=== PATIENT | female | born 1935 | race Caucasian/White ===

== ENCOUNTER 2023-10-13 15:29 | Inpatient (IN) | payer MEDICARE ==
--- NOTE | 2023-10-13 15:51 | ED ---
General Adult HPI - General Chief complaint: Fall Stated complaint: dislocated hip Time Seen by Provider: 10/13/23 15:50 Source: patient, EMS Mode of arrival: EMS Limitations: no limitations - History of Present Illness Initial comments: Patient presents to the ED by ambulance for evaluation. Patient states that she accidentally slipped and fell while holding her small puppy in her arms about an hour ago today. Patient states that she landed on her left side. Patient states that she has been having left hip pain since falling. Patient denies any other injury or site of pain. Patient denies head injury, headache, LOC/syncope, focal neuro deficit, neck/back/upper extremity pain, chest pain, dyspnea, palpitations, dizziness, abdominal pain, nausea or vomiting, or any other symptoms or complaints. Patient states that she is on Eliquis antico agulation therapy for atrial fibrillation. - Related Data Allergies Allergy/AdvReac Type Severity Reaction Status Date / Time No Known Allergies Allergy Verified 10/13/23 15:49 Review of Systems ROS Statement: Those systems with pertinent positive or pertinent negative responses have been documented in the HPI. ROS Other: All systems not noted in ROS Statement are negative. Past Medical History Past Medical History: Atrial Fibrillation, Thyroid Disorder Past Surgical History: Section, Cholecystectomy, Hysterectomy, Orthopedic Surgery Additional Past Surgical History / Comment(s): carpal tunnel surgery Smoking Status: Former smoker Past Alcohol Use History: Occasional Past Drug Use History: None Reported General Exam Limitations: no limitations General appearance: alert Head exam: Present: atraumatic, normocephalic Eye exam: Present: normal appearance ENT exam: Present: mucous membranes moist Neck exam: Present: full ROM, other (Trachea is in midline). Absent: tenderness Respiratory exam: Present: normal lung sounds bilaterally. Absent: respiratory distress, wheezes, rales, rhonchi, stridor, chest wall tenderness Cardiovascular Exam: Present: normal rhythm, irregular rhythm, normal heart sounds, other (Normal radial and dorsalis pedis pulses bilaterally) GI/Abdominal exam: Present: soft. Absent: distended, tenderness, guarding Extremities exam: Present: other (Left lower extremity is shortened and externally rotated at rest; left lateral hip tenderness; pelvis is stable; left lower extremity is neurovascularly intact) Back exam: Present: normal inspection. Absent: tenderness Neurological exam: Present: alert, oriented X3. Absent: motor sensory deficit Psychiatric exam: Present: normal affect Skin exam: Present: warm, dry, intact, normal color Course Vital Signs 10/13/23 15:38 Temperature 98.0 F Pulse Rate 86 Respiratory 16 Rate Blood Pressure 129/87 O2 Sat by Pulse 96 Oximetry - Reevaluation(s) Reevaluation #1: 10/13/23 18:02 Case, H&P and test results/x-ray findings were discussed with Dr. Jean (orthopedic surgery). He accepts hospital admission. He asks to consult [facility] for preoperative clearance. He has no further recommendations at this time. 10/13/23 18:15 Case, H&P, test results/x-ray findings and my discussion with Dr. Jean as above were discussed with CONSTRUCTION FLAGGER Gonzalo Bryant with [facility]. She agrees to see the patient in consultation. 10/13/23 18:19 Patient denies development of any new pain or symptoms while in the ED. Patient is aware of her test results, and she agrees with hospital admission at this time. EKG Findings - EKG Comments: EKG Findings:: ED physician interpretation (interpreted by me): Atrial fibrillation, ventricular rate of 100 bpm, normal QRS duration, normal QT interval, normal axis, nonspecific T-wave abnormality, no ST elevation Medical Decision Making - Medical Decision Making Was pt. sent in by a medical professional or institution ([facility]AM[facility] Boswell, CONSTRUCTION FLAGGER, urgent care, hospital, or [facility]...) When possible be specific @ -[No] Did you speak to anyone other than the patient for history (EMS, parent, family, police, friend...)? What history was obtained from this source @ -[No] Did you review nursing and triage notes (agree or disagree)? Why? @ -[I reviewed and agree with nursing and triage notes] Were old charts reviewed (outside hosp., previous admission, EMS record, old EKG, old radiological studies, urgent care reports/EKG's, [facility] records)? Report findings @ -[No old charts were reviewed] Differential Diagnosis (chest pain, altered mental status, abdominal pain women, abdominal pain men, vaginal bleeding, weakness, fever, dyspnea, syncope, headache, dizziness, GI bleed, back pain, seizure, CVA, palpatations, mental health, musculoskeletal)? @ -[fall, fracture, sprain, strain, contusion, dislocation, coagulopathy] EKG interpreted by me (3pts min.). @ -[As above] X-rays interpreted by me (1pt min.). @ -[Chest x-ray was reviewed myself and shows no acute cardiopulmonary process. I agree with the radiologist's interpretation as above. Left hip x-rays were reviewed myself and demonstrate an intertrochanteric left hip fracture. I agree with the radiologist's interpretation as above.] CT interpreted by me (1pt min.). @ -[None done] U/S interpreted by me (1pt. min.). @ -[None done] What testing was considered but not performed or refused? (CT, X-rays, U/S, labs)? Why? @ -[None] What meds were considered but not given or refused? Why? @ -[None] Did you discuss the management of the patient with other professionals (professionals i.e. , PA, CONSTRUCTION FLAGGER, lab, RT, psych nurse, social insurance analyst, training development specialist, teacher, cavalry officer, case coordinator)? Give summary @ -[As above.] Was smoking cessation discussed for >3mins.? @ -[No] Was critical care preformed (if so, how long)? @ -[No] Were there social determinants of health that impacted care today? How? (Homelessness, low income, unemployed, alcoholism, drug addiction, transp ortation, low edu. Level, literacy, decrease access to med. care, long term, rehab)? @ -[No] Was there de-escalation of care discussed even if they declined (Discuss DNR or withdrawal of care, Hospice)? DNR status @ -[No] What co-morbidities impacted this encounter? (DM, HTN, Smoking, COPD, CAD, Cancer, CVA, ARF, Chemo, Hep., AIDS, mental health diagnosis, sleep apnea, morbid obesity)? @ -[None] Was patient admitted / discharged? Hospital course, mention meds given and route, prescriptions, significant lab abnormalities, going to OR and other pertinent info. @ -[Patient reports a mechanical fall. Patient has sustained a left intertrochanteric closed hip fracture. Patient's pain has been managed with IV analgesics in the ED. Orthopedic surgery will admit the patient to the hospital for surgical management. Hospitalist service will see the patient in consul tation for preoperative clearance. Patient agrees with this plan.] Undiagnosed new problem with uncertain prognosis? @ -[No] Drug Therapy requiring intensive monitoring for toxicity (Heparin, Nitro, Insulin, Cardizem)? @ -[No] Were any procedures done? @ -[No] Diagnosis/symptom? @ -[mechanical fall with acute left hip fracture] Acute, or Chronic, or Acute on Chronic? @ -[acute] Uncomplicated (without systemic symptoms) or Complicated (systemic symptoms)? @ -[default] Side effects of treatment? @ -[No] Exacerbation, Progression, or Severe Exacerbation? @ -[No] Poses a threat to life or bodily function? How? (Chest pain, [place], [place], pneumonia, PE, COPD, DKA, ARF, appy, cholecystitis, CVA, Diverticulitis, Homicidal, Suicidal, threat to staff... and all critical care pts) @ -[No] Diagnosis/symptom? @ -[atrial fibrillation] Acute, or Chronic, or Acute on Chronic? @ -[chronic] Uncomplicated (without systemic symptoms) or Complicated (systemic symptoms)? @ -[uncomplicated] Side effects of treatment? @ -[none] Exacerbation, Progression, or Severe Exacerbation] @ -[no] Poses a threat to life or bodily function? @ -[no] - Lab Data Result diagrams: 10/13/23 16:36 10/13/23 16:36 Lab Results 10/13/23 10/13/23 10/13/23 Range/Units 16:36 16:36 16:36 WBC 10.5 (3.8-10.6) k/uL RBC 4.02 (3.80-5.40) m/uL Hgb 12.2 (11.4-16.0) gm/dL Hct 37.3 (34.0-46.0) % MCV 92.6 (80.0-100.0) fL MCH 30.2 (25.0-35.0) pg MCHC 32.6 (31.0-37.0) g/dL RDW 15.9 H (11.5-15.5) % Plt Count 230 (150-450) k/uL MPV 8.9 Neutrophils % 87 % Lymphocytes % 8 % Monocytes % 3 % Eosinophils % 1 % Basophils % 0 % Neutrophils # 9.2 H (1.3-7.7) k/uL Lymphocytes # 0.8 L (1.0-4.8) k/uL Monocytes # 0.3 (0-1.0) k/uL Eosinophils # 0.1 (0-0.7) k/uL Basophils # 0.0 (0-0.2) k/uL PT 12.0 (10.0-12.5) sec INR 1.1 (<1.2) APTT 26.5 (22.0-30.0) sec Sodium 136 L (137-145) mmol/L Potassium 5.2 H (3.5-5.1) mmol/L Chloride 106 (98-107) mmol/L Carbon Dioxide 27 (22-30) mmol/L Anion Gap 3 mmol/L BUN 18 H (7-17) mg/dL Creatinine 0.58 (0.52-1.04) mg/dL Est GFR (CKD-EPI)AfAm >90 (>60 ml/min/1.73 sqM) Est GFR (CKD-EPI)NonAf 83 (>60 ml/min/1.73 sqM) Glucose 102 H (74-99) mg/dL Calcium 9.3 (8.4-10.2) mg/dL Total Bilirubin 1.1 (0.2-1.3) mg/dL AST 74 H (14-36) U/L ALT 40 H (4-34) U/L Alkaline Phosphatase 153 H (38-126) U/L Total Protein 7.1 (6.3-8.2) g/dL Albumin 4.0 (3.5-5.0) g/dL - Radiology Data Left hip x-rays: Intertrochanteric fracture left hip. Chest x-ray: No acute pulmonary process. Disposition Clinical Impression: Fall, Atrial fibrillation, Closed left hip fracture Disposition: ADMITTED IP TO THIS [facility] Condition: Stable Is patient prescribed a controlled substance at d/c from ED?: No Referrals: Chandrakant Oakley MD [Primary Care Provider] - 1-2 days Time of Disposition: 18:02
[2023-10-13] MEDS ORDERED: HYDROmorphone 0.5 MG/0.5 ML SYRINGE IVP STA (16:04)
[2023-10-13 17:01] LABS: Basophils % (A) 0 %; Eosinophils # (A) 0.1 k/uL (0-0.7); Eosinophils % (A) 1 %; HCT 37.3 % (34.0-46.0); HGB 12.2 gm/dL (11.4-16.0); Lymphocytes # (A) 0.8 k/uL (1.0-4.8); Lymphocytes % (A) 8 %; MCH 30.2 pg (25.0-35.0); MCHC 32.6 g/dL (31.0-37.0); MCV 92.6 fL (80.0-100.0); Mean Platelet Volume 8.9; Monocytes # (A) 0.3 k/uL (0-1.0); Monocytes % (A) 3 %; Neutrophils # (A) 9.2 k/uL (1.3-7.7); Neutrophils % (A) 87 %; Platelet Count 230 k/uL (150-450); RBC 4.02 m/uL (3.80-5.40); RDW 15.9 % (11.5-15.5); WBC 10.5 k/uL (3.8-10.6)
[2023-10-13 17:14] LABS: ALT 40 U/L (4-34); AST 74 U/L (14-36); African American GFR (CKD) >90 (>60 ml/min/1.73 sqM); Alkaline Phosphatase 153 U/L (38-126); Anion Gap 3 mmol/L; Blood Urea Nitrogen 18 mg/dL (7-17); Calcium 9.3 mg/dL (8.4-10.2); Carbon Dioxide 27 mmol/L (22-30); Chloride 106 mmol/L (98-107); Glucose 102 mg/dL (74-99); Non-African American GFR(CKD) 83 (>60 ml/min/1.73 sqM); Sodium 136 mmol/L (137-145); Total Bilirubin 1.1 mg/dL (0.2-1.3); Total Protein 7.1 g/dL (6.3-8.2)
[2023-10-13 17:17] LABS: INR 1.1 (<1.2); Partial Thromboplastin Time 26.5 sec (22.0-30.0)
--- NOTE | 2023-10-13 17:17 | XR ---
EXAMINATION TYPE: XR femur LT DATE OF EXAM: 10/13/2023 COMPARISON: None HISTORY: Fall, hip injury TECHNIQUE: 2 view left femur FINDINGS: There is an intertrochanteric fracture of the left hip. Avulsion of the lesser trochanter a ppears to be present. Femoral head or to go to the acetabulum. No additional fractures are evident. Degenerative changes ar e at the knee joint space. No joint effusion is evident. IMPRESSION: 1. Intertrochanteric fracture left hip
--- NOTE | 2023-10-13 17:18 | XR ---
EXAMINATION TYPE: XR chest 1V portable DATE OF EXAM: 10/13/2023 COMPARISON: None INDICATION: Left hip injury TECHNIQUE: Single frontal view of the chest is obtained. FINDINGS: The heart size is normal. The pulmonary vasculature is normal. The lungs are clear. Chronic changes right shoulder. IMPRESSION: 1. No acute pulmonary process.
[2023-10-13 17:24] LABS: Potassium 5.2 mmol/L (3.5-5.1)
[2023-10-13] MEDS ORDERED: NALOXONE 0.4 MG/ML 1 ML VIAL IV PRN (18:17)
[2023-10-13] MEDS: HYDROmorphone 0.5 MG/0.5 ML SYRINGE IVP PRN (22:38)
--- NOTE | 2023-10-13 23:25 | P.CONS ---
History of Present Illness - Reason for Consult Consult date: 10/13/23 - History of Present Illness Patient is a 88-year-old female with a PMH of A-fib on Eliquis, GERD, and hypothyroidism who presents to the emergency room after a fall. Patient reports she was sitting down on a couch watching television when she stood up and as she was walking, her foot slipped and she fell onto her left side. She vehemently denies losing consciousness or experiencing head trauma. The patient's son soon got back home from the grocery store and found her on the ground and activated EMS. Patient reported being unable to stand up after the trauma. She reported severe pain on her left hip at that time but has now improved to a 1 out of 10 at rest. She denies any additional complaints. Denied experiencing headaches, visual disturbances, weakness, numbness, tingling. Left hip x-ray revealed an intertrochanteric fracture of the left hip with chest x-ray showing no acute abnormalities. EKG revealed A-fib with RVR at 100 bpm with T wave flattening in leads II, III, and aVF. Laboratory evaluation was remarkable for AST 74, ALT 40, alk phos 153, potassium 5.2 (hemolyzed) and platelet count 230. ED documentation reviewed and case discussed with ED provider. Review of systems: Pertinent positives and negatives as discussed in HPI, a complete review of systems was performed and all other systems are negative. Physical examination: Vital signs reviewed General: non toxic, no distress, appears at stated age, overweight Derm: no unusual rashes/lesions, warm Head: atraumatic, normocephalic, symmetric Eyes: EOMI, no lid lag, anicteric sclera, pupils equal round reactive to light ENT: Nose and ears atraumatic Neck: No cervical lymphadenopathy, trachea midline, supple Mouth: no lip lesion, mucus membranes moist Cardiovascular: S1S2 reg, no murmur, positive dorsalis pedis pulse bilateral, no edema Lungs: CTA bilateral, no rhonchi, no rales, no accessory muscle use Abdominal: soft, nontender to palpation, no guarding Ext: muscle strength 5 out of 5 in all 4 extremities grossly except left lower extremity proximal strength limited due to pain, no gross muscle atrophy, no contractures, Neuro: CN II-XI grossly intact, no gross focal neuro deficits Psych: Alert, oriented, appropriate affect Assessment: Preoperative evaluation Patient reports excellent exercise tolerance at baseline and reports not using any assistive devices and being able to climb stairs without difficulty. She performs most of her ADLs independently and feels that she is not excellent health for her age. She denies experiencing exertional dyspnea or chest discomfort. Reports no history of coronary artery disease or congestive heart failure. States that her A-fib is well-controlled with Cardizem orally and that she is compliant with her Eliquis with her last dose this a.m. NSQIP score: 8.4% risk for any complication and 7.7% risk for serious complication (both below average) Will defer to surgery regarding preop hold duration and post-op resumption of Eliquis The patient is otherwise optimized for orthopedic surgical repair of left femo ral fracture with no obvious modifiable risk factors noted. Chronic conditions: Hypothyroidism, GERD, A-fib Imaging: Left hip x-ray revealed an intertrochanteric fracture of the left hip with chest x-ray showing no acute abnormalities. EKG revealed A-fib with RVR at 100 bpm with T wave flattening in leads II, III, and aVF. Data Review: Laboratory evaluation was remarkable for AST 74, ALT 40, alk phos 153, potassium 5.2 (hemolyzed) and platelet count 230. Plan: C/w Cardiac monitoring Continue with home medications Synthroid, Protonix, Cardizem Defer management of pain control and Eliquis resumption for A-fib and DVT prophylaxis to the primary surgery service Past Medical History Past Medical History: Atrial Fibrillation, Thyroid Disorder Additional Past Medical History / Comment(s): "uric acid problem that I take colchicine for" History of Any Multi-Drug Resistant Organisms: None Reported Past Surgical History: Section, Cholecystectomy, Heart Catheterization, Hysterectomy, Orthopedic Surgery Additional Past Surgical History / Comment(s): carpal tunnel surgery, torn meniscus in both knees, bladder suspension Past Anesthesia/Blood Transfusion Reactions: No Reported Reaction Past Psychological History: No Psychological Hx Reported Smoking Status: Former smoker Past Alcohol Use History: Rare Past Drug Use History: None Reported Medications and Allergies Home Medications Medication Instructions Recorded Confirmed Type Acetaminophen Tab [Tylenol] 650 mg PO Q4-6H PRN 10/13/23 10/13/23 History Apixaban [Eliquis] 2.5 mg PO BID 10/13/23 10/13/23 History Diltiazem Cd [Cardizem CD] 120 mg PO BID 10/13/23 10/13/23 History Levothyroxine Sodium [Synthroid] 100 mcg PO DAILY 10/13/23 10/13/23 History Omeprazole [PriLOSEC] 20 mg PO BID 10/13/23 10/13/23 History Probenecid/Colchicine 1 tab PO BID 10/13/23 10/13/23 History [Probenecid-Colchicine Tablet] guaiFENesin 400 mg PO DAILY 10/13/23 10/13/23 History guaiFENesin 800 mg PO HS 10/13/23 10/13/23 History Allergies Allergy/AdvReac Type Severity Reaction Status Date / Time No Known Allergies Allergy Verified 10/13/23 19:04 Physical Exam Vitals: Vital Signs Temp Pulse Resp BP Pulse Ox 10/13/23 21:30 16 10/13/23 19:24 99 16 104/71 98 10/13/23 15:38 98.0 F 86 16 129/87 96 Intake and Output 10/13/23 10/13/23 10/14/23 14:59 22:59 06:59 Other: Voiding Method External Catheter Weight 63.503 kg Results CBC & Chem 7: 10/13/23 16:36 10/13/23 16:36 Labs: Abnormal Lab Results - Last 24 Hours (Table) 10/13/23 10/13/23 Range/Units 16:36 16:36 RDW 15.9 H (11.5-15.5) % Neutrophils # 9.2 H (1.3-7.7) k/uL Lymphocytes # 0.8 L (1.0-4.8) k/uL Sodium 136 L (137-145) mmol/L Potassium 5.2 H (3.5-5.1) mmol/L BUN 18 H (7-17) mg/dL Glucose 102 H (74-99) mg/dL AST 74 H (14-36) U/L ALT 40 H (4-34) U/L Alkaline Phosphatase 153 H (38-126) U/L
[2023-10-14] MEDS ORDERED: TRANEXAMIC 1,000 MG/100ML-NACL 1,000 MG in SALINE 1 100ML.BAG IVPB PRN (06:00)
[2023-10-14] MEDS: LEVOTHYROXINE 100 MCG TAB PO SCH (06:20)
[2023-10-14] MEDS: PANTOPRAZOLE 40 MG TABLET PO SCH (06:20)
[2023-10-14] MEDS: HYDROmorphone 0.5 MG/0.5 ML SYRINGE IVP PRN (06:20)
--- NOTE | 2023-10-14 07:40 | P.HPOR ---
History of Present Illness H&P Date: 10/14/23 The patient is a very pleasant 88-year-old female with a medical history significant for atrial fibrillation on Eliquis who is admitted with a left hip fracture following a ground-level fall. The patient is extremely hard of hearing and her hearing aids are working so the majority of the history is obtained from her chart. According to the patient she has isolated pain in her left hip. According to the chart she got up to walk yesterday and fell. She was brought into the emergency department where x-rays showed a left intertrochanteric hip fracture. She was admitted under my care and internal medicine was consulted for perioperative medical management. Past Medical History Past Medical History: Atrial Fibrillation, Thyroid Disorder Additional Past Medical History / Comment(s): "uric acid problem that I take colchicine for" History of Any Multi-Drug Resistant Organisms: None Reported Past Surgical History: Section, Cholecystectomy, Heart Catheterization, Hysterectomy, Orthopedic Surgery Additional Past Surgical History / Comment(s): carpal tunnel surgery, torn meniscus in both knees, bladder suspension Past Anesthesia/Blood Transfusion Reactions: No Reported Reaction Past Psychological History: No Psychological Hx Reported Smoking Status: Former smoker Past Alcohol Use History: Rare Past Drug Use History: None Reported Medications and Allergies Home Medications Medication Instructions Recorded Confirmed Type Acetaminophen Tab [Tylenol] 650 mg PO Q4-6H PRN 10/13/23 10/13/23 History Apixaban [Eliquis] 2.5 mg PO BID 10/13/23 10/13/23 History Diltiazem Cd [Cardizem CD] 120 mg PO BID 10/13/23 10/13/23 History Levothyroxine Sodium [Synthroid] 100 mcg PO DAILY 10/13/23 10/13/23 History Omeprazole [PriLOSEC] 20 mg PO BID 10/13/23 10/13/23 History Probenecid/Colchicine 1 tab PO BID 10/13/23 10/13/23 History [Probenecid-Colchicine Tablet] guaiFENesin 400 mg PO DAILY 10/13/23 10/13/23 History guaiFENesin 800 mg PO HS 10/13/23 10/13/23 History Allergies Allergy/AdvReac Type Severity Reaction Status Date / Time No Known Allergies Allergy Verified 10/13/23 19:04 Physical Examination The patient is resting comfortably in her bed. She is alert and able to respond to questions but is extremely hard of hearing. Her head is normocephalic and atraumatic. She demonstrates nonlabored breathing with symmetric chest expansion. She has no tenderness along her cervical spine. Her abdomen is soft and nontender. Both upper extremities are without deformity and are nontender. The right lower extremity has no pain with passive range of motion of the hip or log roll. There is no tenderness throughout the right leg. A focused examination of the left lower extremity was conducted. On inspection the leg appears shortened and externally rotated. There is pain with any attempts at passive range of motion of the hip. The thigh is soft. There are no overlying skin lesions. She has no tenderness over the knee or ankle. She is able to actively plantarflex and dorsiflex her ankle and her toes. Results X-rays of the left femur show a minimally displaced intertrochanteric hip fracture - Labs Labs: Abnormal Lab Results - Last 24 Hours (Table) 10/13/23 10/13/23 Range/Units 16:36 16:36 RDW 15.9 H (11.5-15.5) % Neutrophils # 9.2 H (1.3-7.7) k/uL Lymphocytes # 0.8 L (1.0-4.8) k/uL Sodium 136 L (137-145) mmol/L Potassium 5.2 H (3.5-5.1) mmol/L BUN 18 H (7-17) mg/dL Glucose 102 H (74-99) mg/dL AST 74 H (14-36) U/L ALT 40 H (4-34) U/L Alkaline Phosphatase 153 H (38-126) U/L H & H 10/13/23 Range/Units 16:36 Hgb 12.2 (11.4-16.0) gm/dL Hct 37.3 (34.0-46.0) % Coagulation 10/13/23 Range/Units 16:36 INR 1.1 (<1.2) Result Diagrams: 10/13/23 16:36 10/13/23 16:36 Assessment and Plan Assessment: Left intertrochanteric hip fracture Atrial fibrillation on Eliquis Plan: The patient has a left extracapsular intertrochanteric hip fracture and my recommendation was to stabilize this with a short intramedullary hip screw to facilitate mobilization. She is been seen by internal medicine and cleared for surgery. We will hold her anticoagulation which can then be resumed following surgery for both treatment of her atrial fibrillation and DVT prophylaxis. I briefly tried discussing risks of surgery but due to the patient's extreme hearing loss this was futile. I will attempt to further discuss risks with the patient and her son prior to surgery. Time with Patient: Greater than 30
[2023-10-14] MEDS: DILTIAZEM CD 120 MG CAP.ER.24H PO SCH ×2 (08:23→20:33)
--- NOTE | 2023-10-14 09:48 | XR ---
EXAMINATION TYPE: XR knee complete LT DATE OF EXAM: 10/14/2023 COMPARISON: None HISTORY: Pain, fall TECHNIQUE: 3 view left knee FINDINGS: There is narrowing of the medial compartment joint space. Some narrowing and lateral compar tment joint space is present. Medial tibial plateau and femoral condylar spurring is present. No join t effusion is evident. No acute fractures or dislocations are evident. Follow up exams can be perform ed 7-10 days from acute trauma and pain. IMPRESSION: 1. No acute osseous abnormality right knee. 2. Mild degenerative changes.
[2023-10-14 10:28] LABS: Basophils # (A) 0.01 X 10*3/uL (0.00-0.10); Basophils % (A) 0.1 %; Eosinophils # (A) 0.07 X 10*3/uL (0.04-0.35); Eosinophils % (A) 0.8 %; HCT 34.6 % (37.2-46.3); Lymphocytes # (A) 2.29 X 10*3/uL (0.90-5.00); Lymphocytes % (A) 27.2 %; MCH 28.7 pg (27.0-32.0); MCHC 31.8 g/dL (32.0-37.0); MCV 90.3 FL (80.0-97.0); Mean Platelet Volume 11.7 FL (9.5-12.2); Monocytes # (A) 0.55 X 10*3/uL (0.20-1.00); Monocytes % (A) 6.5 %; NRBC Per 100 WBC 0 X 10*3/uL (0.00-0.01); Neutrophils # (A) 5.48 X 10*3/uL (1.80-7.70); Neutrophils % (A) 65.2 %; Platelet Count 224 X 10*3/uL (140-440); RBC 3.83 X 10*6/uL (4.10-5.20); RDW 16.6 % (11.5-14.5); WBC 8.42 X 10*3/uL (4.50-10.00)
[2023-10-14] MEDS ORDERED: LACTATED RINGERS 1,000 ML IV ONE ×2 (10:32)
[2023-10-14 10:44] LABS: ALT 25 U/L (8-44); AST 33 U/L (13-35); Albumin 3.4 g/dL (3.8-4.9); Albumin/Globulin Ratio 1.55 Ratio (1.60-3.17); Alkaline Phosphatase 98 U/L (41-126); BUN/Creat Ratio 20.43 Ratio (12.00-20.00); Blood Urea Nitrogen 14.3 mg/dL (9.0-27.0); Calcium 9.3 mg/dL (8.7-10.3); Carbon Dioxide 23.9 mmol/L (21.6-31.8); Chloride 104 mmol/L (96-109); Globulin 2.2 g/dL (1.6-3.3); Glucose 96 mg/dL (70-110); Potassium 3.9 mmol/L (3.5-5.5); Sodium 139 mmol/L (135-145); Total Bilirubin 0.7 mg/dL (0.3-1.2); Total Protein 5.6 g/dL (6.2-8.2)
[2023-10-14] MEDS: LACTATED RINGERS 1,000 ML IV ONE ×2 (10:44→14:37)
[2023-10-14] MEDS ORDERED: DEXAMETHASONE SOD PHOSPHATE 4 MG/ML 1 ML VIAL IVP ONE (10:56)
[2023-10-14] MEDS: ONDANSETRON 4 MG/2 ML VIAL IVP ONE ×2 (10:56→12:32)
[2023-10-14] MEDS ORDERED: MIDAZOLAM 2 MG/2 ML VIAL ONE (10:58)
[2023-10-14] MEDS ORDERED: fentaNYL (PF) 50 MCG/ML 2 ML AMP ONE (10:58)
[2023-10-14] MEDS ORDERED: NEOSTIGMINE 1 MG/ML 10 ML VIAL ONE (10:58)
[2023-10-14] MEDS ORDERED: TRANEXAMIC 1,000 MG/100ML-NACL PREMIX BAG ONE (10:58)
[2023-10-14] MEDS ORDERED: SODIUM CHLORIDE 0.9% 50 ML with ceFAZolin 2,000 MG IV ONE ×2 (10:58)
[2023-10-14] MEDS ORDERED: GLYCOPYRROLATE 0.2 MG/ML 2 ML VIAL ONE (10:58)
[2023-10-14] MEDS ORDERED: SUCCINYLCHOLINE CHLORIDE 200 MG/10 ML VIAL IV ONE (10:58)
[2023-10-14] MEDS ORDERED: LIDOCAINE 1% INJ 10MG/ML (20 ML MDV) ONE (10:58)
[2023-10-14] MEDS ORDERED: ROCURONIUM 10 MG/ML (5 ML VIAL) IV ONE (10:58)
[2023-10-14] MEDS ORDERED: PROPOFOL 10 MG/ML 20 ML VIAL IV ONE (10:58)
[2023-10-14] MEDS: COLCHICIN-PROBENECID 0.5-500MG 1 EACH TAB PO SCH ×2 (12:13→20:33)
[2023-10-14] MEDS ORDERED: hydrOXYzine pamoate 25 MG CAP PO PRN (12:29)
[2023-10-14] MEDS ORDERED: HYDROmorphone 0.5 MG/0.5 ML SYRINGE IVP PRN (12:29)
[2023-10-14] MEDS ORDERED: NALOXONE 0.4 MG/ML 1 ML VIAL IV PRN (12:29)
[2023-10-14] MEDS ORDERED: ONDANSETRON 4 MG/2 ML VIAL IVP PRN (12:29)
[2023-10-14] MEDS ORDERED: MAGNESIUM HYDROXIDE 2,400 MG/30 ML CUP PO PRN (12:29)
--- NOTE | 2023-10-14 12:29 | P.OP ---
Date of Procedure: 10/14/23 Preoperative Diagnosis: 1. Left intertrochanteric hip fracture 2. Atrial fibrillation on Eliquis Postoperative Diagnosis: Same Procedure(s) Performed: Operative fixation of left intertrochanteric hip fracture with short intramedullary hip screw Anesthesia: SANT[place]AGO Surgeon: Samuel Jean Estimated Blood Loss (ml): 200 IV fluids (ml): 800 Pathology: none sent Condition: stable Disposition: PACU Indications for Procedure: I met with the patient and their family preoperatively to discuss their injury and treatment options. They have an extra-capsular, intertrochanteric hip fracture and my recommendation was to stabilize the fracture with an intra medullary hip screw to facilitate early mobilization. We discussed the potential risks and complications of this surgical procedure including but certainly not limited to risks from anesthesia, superficial infection, deep infection, fracture nonunion, fracture malunion, hardware failure including broken hardware, varus collapse with lag screw cut out of the femoral head, progression of hip arthritis, limb length discrepancy, symptomatic hardware, need for further surgery including hardware removal and conversion to arthroplasty, DVT, PE, acute coronary event, pressure ulcers, urinary tract in fection, failure to thrive, an inability to regain preinjury level of function, and possibly . The patient and their family understand these potential complications and also awknowledge that other less common complications are possible. They provided both their verbal and written consent to go forward with operative fixation of their hip fracture with an intramedullary hip screw. Description of Procedure: The patient was identified in preoperative holding and the correct operative extremity was marked with my initials. I reviewed the consent form with the patient and their family and all of their questions were answered. The patient was then brought back to the operating room by anesthesia. Anesthesia, preoperative antibiotics, and tranexamic acid were given by the anesthesia team while on the [facility]. Both ankles were padded with webril and boots for the [place] table were applied. The patient was then carefully transferred onto the [place] table. A perineal post was immediately placed. The contralateral arm was secured on a well-padded arm meléndez. The ipsilateral arm was draped across the chest and secured with a pillow, foam, and paper tape to allow access to the proximal femur. Nonsterile drapes were applied to the operative extremity. The height of the table was elevated and the contralateral extremity was dropped towards the floor to facilitate imaging. A timeout was performed identifying the correct patient, operative extremity, and procedure. Fluoroscopy was brought in to assess the fracture. A provisional reduction was performed using longitudinal traction, adduction, and internal rotation. An AP and lateral view were obtained to assess the reduction. The operative extremity was then prepped and draped in the standard sterile fashion. A straight incision was made at the tip of the greater trochanter and extended proximally for 3 cm. Skin and subcutaneous tissues were incised sharply. The underlying fascia was incised in line with the skin incision. An awl was placed just medial to the tip of the greater trochanter on the AP view and colinear with the canal on the lateral view. A 3.2 mm guide pin was then ad vanced into the proximal femur. The position of the guidepin was verified with fluoroscopy. An opening reamer and soft tissue cannula were placed over the guidepin and used to open the proximal femur to the level of the lesser trochanter. The 3.2 mm guide pin and opening reamer were removed. A short gamma nail was dispensed, hooked up to the targeting arm and I verified that the trochar through the targeting arm lined up with the slots on the nail. The nail was then impacted into the proximal femur until the appropriate depth had been reached. A small stab incision was made over the lateral aspect of the femur using the targeting arm as a reference for the lag screw. Incision was carried down to the skin and fascia down to the lateral cortex of the femur. The trocar was then placed up to the lateral cortex of the femur and a guidepin was placed in the low center position on the AP view and centered in the femoral head on the lateral view. Once the position of the guidewire was verified, we reamed to appropriate depth and placed a lag screw over the guidewire and into the femoral head. The position of the lag screw was assessed with fluoroscopy. The guidewire was then removed from the femoral head. The set screw was placed proximally, brought fully down and then released a quarter turn to allow compression. A final stab incision was made over the lateral femur at the site of the distal interlocking screw, again using the targeting arm as a reference. The trocar and sleeve were placed to the lateral cortex of the femur. We then drilled and placed a distal interlocking screw. Final fluoroscopic images were taken showing excellent reduction of the fracture and appropriate position of the implants. All wounds were thoroughly irrigated and closed in layers. S terile dressings were applied. The drapes were taken down, the patient was transferred off the [place] table, and was brought to recovery having tolerated the procedure well. PLAN: The patient can weight-bear as tolerated on their operative extremity. 2 doses of postoperative antibiotics. DVT prophylaxis - can resume home Eliquis dose. Leave surgical dressing in place unless it becomes soiled or saturated. Appreciate Internal Medical assistance with perioperative medical management. Discharge planning in process.
[2023-10-14] MEDS ORDERED: LABETALOL SYRINGE 5 MG/ML (4 ML SYR) IVP ONE (12:31)
[2023-10-14] MEDS ORDERED: droPERidol 5 MG/2 ML VIAL IVP ONE (12:43)
[2023-10-14 13:17] LABS: Basophils % (A) 0 %; Eosinophils # (A) 0.1 k/uL (0-0.7); Eosinophils % (A) 0 %; HCT 38.2 % (34.0-46.0); HGB 12.2 gm/dL (11.4-16.0); Hypochromasia Slight; Lymphocytes # (A) 1.3 k/uL (1.0-4.8); Lymphocytes % (A) 11 %; MCH 30.4 pg (25.0-35.0); MCHC 31.8 g/dL (31.0-37.0); MCV 95.6 fL (80.0-100.0); Mean Platelet Volume 8.5; Monocytes # (A) 0.3 k/uL (0-1.0); Monocytes % (A) 3 %; Neutrophils # (A) 9.8 k/uL (1.3-7.7); Neutrophils % (A) 85 %; Platelet Count 197 k/uL (150-450); RDW 15.7 % (11.5-15.5); WBC 11.5 k/uL (3.8-10.6)
--- NOTE | 2023-10-14 13:51 | P.PN ---
Subjective Progress Note Date: 10/14/23 (susan charting seen at 0900) Patient is a 88-year-old female with known A-fib anticoagulated with Eliquis, GERD, and hypothyroidism who presented to the emergency department after a fall. She was subsequently found to have a left intertrochanteric hip fracture. She was admitted to orthopedic surgery we are asked to consult for medical management. Patient seen and examined at bedside. She denies any chest pain or shortness of breath. She denies any lightheadedness or dizziness. She states she has chronic left knee pain which is worse this morning after her fall. She states she has been told she needs a knee replacement in the past, but has not wanted to do this. Yesterday when she fell she landed on her left knee and then hit. Vital signs reviewed General: Nontoxic, no distress, appears at stated age Cardiovascular: S1S2 reg, no murmur Lungs: CTA bilateral, no rhonchi, no rales, no accessory muscle use Abdominal: Soft, nontender to palpation, no guarding Ext: No gross muscle atrophy, no edema b/l lower extremities, no contractures, mild swelling around the left medial knee joint, pain to palpation over the tibial plateau Neuro: CN II-XI grossly intact, no focal neuro deficits Psych: Alert, oriented, appropriate affect Assessment/Plan: Left intertrochanteric hip fracture. Managed by orthopedic surgery. Plan is for the OR today for IM nailing. Acute on chronic left knee pain -Check x-ray: No acute osseous abnormality, no joint effusion, no fracture. -Continue with [place] 5 to 10 mg every 6 hours as needed for pain. Dilaudid for worsening breakthrough pain, and Vistaril 25 mg every 4 hours for nausea and to augment pain control. Atrial fibrillation with rapid ventricular response, rapid ventricular response resolved -Eliquis on hold for surgery. Will resume when okay with orthopedic surgery -Continue with Cardizem 120 mg oral twice daily Hypothyroidism -Synthroid 100 mg daily Gout -Colchicine Imaging: As above for knee x-ray Data Review: Labs reviewed today include CBC and basic metabolic profile which are remarkable for hemoglobin 11. Thank you for allowing us to participate in the care of this pleasant patient. Do not hesitate to contact us with questions. Someone can be reached from the [facility] hospitalist group all hours of the day at [phone] or via [employer]. This dictation was prepared using [employer] voice recognition software. Though every attempt is made to correct errors during dictation some may still exist. Objective - Vital Signs Vital signs: Vital Signs Temp 98 F 10/14/23 12:22 Pulse 98 10/14/23 12:49 Resp 17 10/14/23 12:49 BP 109/69 10/14/23 12:49 Pulse Ox 96 10/14/23 12:49 FiO2 Intake & Output 10/13/23 10/14/23 10/14/23 18:59 06:59 18:59 Intake Total 900 Output Total 500 200 Balance -500 700 Weight 63.503 kg Intake: IV 900 Output: Urine 500 Estimated Blood Loss 200 Other: Voiding Method External Catheter External Catheter - Labs CBC & Chem 7: 10/14/23 12:58 10/14/23 06:06 Labs: Abnormal Lab Results - Last 24 Hours (Table) 10/13/23 10/13/23 10/14/23 Range/Units 16:36 16:36 06:06 WBC (3.8-10.6) k/uL RBC 3.83 L (4.10-5.20) X 10*6/uL Hgb 11.0 L (12.0-15.0) g/dL Hct 34.6 L (37.2-46.3) % MCHC 31.8 L (32.0-37.0) g/dL RDW 15.9 H 16.6 H (11.5-15.5) % Neutrophils # 9.2 H (1.3-7.7) k/uL Lymphocytes # 0.8 L (1.0-4.8) k/uL Sodium 136 L (137-145) mmol/L Potassium 5.2 H (3.5-5.1) mmol/L BUN 18 H (7-17) mg/dL BUN/Creatinine Ratio (12.00-20.00) Ratio Glucose 102 H (74-99) mg/dL AST 74 H (14-36) U/L ALT 40 H (4-34) U/L Alkaline Phosphatase 153 H (38-126) U/L Total Protein (6.2-8.2) g/dL Albumin (3.8-4.9) g/dL Albumin/Globulin Ratio (1.60-3.17) Ratio 10/14/23 10/14/23 Range/Units 06:06 12:58 WBC 11.5 H (3.8-10.6) k/uL RBC (4.10-5.20) X 10*6/uL Hgb (12.0-15.0) g/dL Hct (37.2-46.3) % MCHC (32.0-37.0) g/dL RDW 15.7 H (11.5-15.5) % Neutrophils # 9.8 H (1.3-7.7) k/uL Lymphocytes # (1.0-4.8) k/uL Sodium (137-145) mmol/L Potassium (3.5-5.1) mmol/L BUN (7-17) mg/dL BUN/Creatinine Ratio 20.43 H (12.00-20.00) Ratio Glucose (74-99) mg/dL AST (14-36) U/L ALT (4-34) U/L Alkaline Phosphatase (38-126) U/L Total Protein 5.6 L (6.2-8.2) g/dL Albumin 3.4 L (3.8-4.9) g/dL Albumin/Globulin Ratio 1.55 L (1.60-3.17) Ratio
--- NOTE | 2023-10-14 14:10 | XR ---
Fluoroscopy INDICATION: Pain FINDINGS: Fluoroscopy time: 1 minute 37 seconds. Total dose area product (DAP) in uGy*m?, mGy*cm? (or similar): 9.8702 Images obtained: 2. IMPRESSION: 1. Documentation of fluoroscopy.
[2023-10-14] MEDS: HYDROcodone/APAP 10-325MG 1 EACH TAB PO PRN (14:29)
[2023-10-14] MEDS: SODIUM CHLORIDE 0.9% 1,000 ML IV SCH ×2 (14:37→17:41)
[2023-10-14] MEDS: SENNOSIDES-DOCUSATE SODIUM 1 EACH TAB PO SCH (20:33)
[2023-10-14] MEDS: APIXABAN 2.5 MG TABLET PO SCH (20:34)
[2023-10-14] MEDS: HYDROcodone/APAP 5-325MG 1 EACH TAB PO PRN (21:12)
[2023-10-15] MEDS: SODIUM CHLORIDE 0.9% 1,000 ML IV SCH ×2 (02:13→12:44)
[2023-10-15] MEDS: CYCLOBENZAPRINE 5 MG TAB PO PRN ×2 (05:24→11:51)
[2023-10-15] MEDS: HYDROcodone/APAP 5-325MG 1 EACH TAB PO PRN (06:28)
[2023-10-15] MEDS: PANTOPRAZOLE 40 MG TABLET PO SCH (06:30)
[2023-10-15] MEDS: LEVOTHYROXINE 100 MCG TAB PO SCH (06:30)
[2023-10-15] MEDS: APIXABAN 2.5 MG TABLET PO SCH ×2 (09:33→21:35)
[2023-10-15] MEDS: DILTIAZEM CD 120 MG CAP.ER.24H PO SCH ×2 (09:33→21:36)
[2023-10-15] MEDS: COLCHICIN-PROBENECID 0.5-500MG 1 EACH TAB PO SCH (10:36)
--- NOTE | 2023-10-15 11:33 | P.PN ---
Subjective Patient is complaining of muscle spasms this morning. Otherwise she has no complaints. Objective - Vital Signs Vital signs: Vital Signs Temp 97.8 F 10/15/23 07:14 Pulse 95 10/15/23 07:14 Resp 18 10/15/23 07:14 BP 107/65 10/15/23 07:14 Pulse Ox 91 L 10/15/23 07:14 FiO2 Intake & Output 10/14/23 10/15/23 10/15/23 18:59 06:59 18:59 Intake Total 900 1910 Output Total 200 1650 Balance 700 260 Intake: IV 900 Intake, IV Titration 950 Amount Sodium Chloride 0.9% 1, 900 000 ml @ 100 mls/hr IV . Q10H [facility] Rx#:[id number] ceFAZolin 2 gm In Sodium 50 Chloride 0.9% 50 ml @ 100 mls/hr IVPB Q8H [facility] Rx#: [id number] Oral 960 Output: Urine 1650 Estimated Blood Loss 200 Other: Voiding Method External Catheter External Catheter # Voids 0 - Exam Patient is resting comfortably in her bed. She has intact dressings over the lateral aspect of her hip and thigh. Her thigh is soft. She is able to actively plantarflex and dorsiflex her ankle and her toes. - Labs CBC & Chem 7: 10/14/23 12:58 10/14/23 06:06 Labs: Abnormal Lab Results - Last 24 Hours (Table) 10/14/23 Range/Units 12:58 WBC 11.5 H (3.8-10.6) k/uL RDW 15.7 H (11.5-15.5) % Neutrophils # 9.8 H (1.3-7.7) k/uL Assessment and Plan Assessment: Postoperative day #1 status post left hip gamma nail Plan: 1. Weight-bear as tolerated left lower extremity, up with assistance and a walker, mobilize out of bed to a chair 2. 2 doses postoperative antibiotics 3. DVT prophylaxis with Eliquis 2.5 mg BID 4. Leave surgical dressings in place 5. Appreciate internal medicine's assistance with preoperative medical management 6. Discharge planning in process
[2023-10-15] MEDS: HYDROcodone/APAP 10-325MG 1 EACH TAB PO PRN (11:59)
[2023-10-15 12:53] LABS: HCT 38.3 % (34.0-46.0); HGB 12.3 gm/dL (11.4-16.0); Hypochromasia Slight; MCH 30.4 pg (25.0-35.0); MCHC 32.2 g/dL (31.0-37.0); MCV 94.5 fL (80.0-100.0); Mean Platelet Volume 8.6; Platelet Count 240 k/uL (150-450); RBC 4.05 m/uL (3.80-5.40); RDW 15.4 % (11.5-15.5); WBC 9.9 k/uL (3.8-10.6)
[2023-10-15 13:10] LABS: African American GFR (CKD) 89 (>60 ml/min/1.73 sqM); Anion Gap 6 mmol/L; Blood Urea Nitrogen 12 mg/dL (7-17); Calcium 9.3 mg/dL (8.4-10.2); Carbon Dioxide 26 mmol/L (22-30); Chloride 104 mmol/L (98-107); Glucose 103 mg/dL (74-99); Non-African American GFR(CKD) 77 (>60 ml/min/1.73 sqM); Potassium 3.9 mmol/L (3.5-5.1); Sodium 136 mmol/L (137-145)
[2023-10-15 13:52] VITALS: BMI 28.3
--- NOTE | 2023-10-15 15:02 | P.PN ---
Subjective Progress Note Date: 10/15/23 (delayed charting seen at 1130) Patient is a 88-year-old female with known A-fib anticoagulated with Eliquis, GERD, and hypothyroidism who presented to the emergency department after a fall. She was subsequently found to have a left intertrochanteric hip fracture. She was admitted to orthopedic surgery we are asked to consult for medical management. Patient seen and examined at bedside. She is having significant spasms in her hip. She initially thought it was due to her colchicine dosing. We had a discussion that is likely related to surgery. She denies any chest pain or shortness of breath. No other complaints currently. Vital signs reviewed General: Nontoxic, no distress, appears at stated age Cardiovascular: S1S2 reg, no murmur Lungs: CTA bilateral, no rhonchi, no rales, no accessory muscle use Abdominal: Soft, nontender to palpation, no guarding Ext: No gross muscle atrophy, no edema b/l lower extremities Neuro: CN II-XI grossly intact, no focal neuro deficits Psych: Alert, oriented, appropriate affect Assessment/Plan: Left intertrochanteric hip fracture s/p Im nailing Post-op pain -Continue with [place] 5 to 10 mg every 6 hours as needed for pain. Dilaudid for worsening breakthrough pain, and Vistaril 25 mg every 4 hours for nausea and to augment pain control. - flexeril 5 mg PO TID -Orthopedic surgery note reviewed: Continue weightbearing as tolerated, discharge planning in process. Atrial fibrillation with rapid ventricular response, rapid ventricular response resolved -Eliquis 2.5 PO BID -Continue with Cardizem 120 mg oral twice daily Hypothyroidism -Synthroid 100 mg daily Gout -Colchicine/probenecid BID Imaging: As above for knee x-ray Data Review: Labs reviewed from today include CBC and basic metabolic profile which are remarkable for sodium 136 and glucose 103 Thank you for allowing us to participate in the care of this pleasant patient. Do not hesitate to contact us with questions. Someone can be reached from the [facility] hospitalist group all hours of the day at [phone] or via [employer]. This dictation was prepared using [employer] voice recognition software. Though every attempt is made to correct errors during dictation some may still exist. Objective - Vital Signs Vital signs: Vital Signs Temp 97.8 F 01/29/24 07:14 Pulse 95 10/15/23 07:14 Resp 18 10/15/23 07:14 BP 107/65 10/15/23 07:14 Pulse Ox 91 L 10/15/23 07:14 FiO2 Intake & Output 10/14/23 10/15/23 10/15/23 18:59 06:59 18:59 Intake Total 900 1910 Output Total 200 1650 1200 Balance 700 260 -1200 Weight 63.503 kg Intake: IV 900 Intake, IV Titration 950 Amount Sodium Chloride 0.9% 1, 900 000 ml @ 100 mls/hr IV . Q10H [facility] Rx#:[id number] ceFAZolin 2 gm In Sodium 50 Chloride 0.9% 50 ml @ 100 mls/hr IVPB Q8H [facility] Rx#: [id number] Oral 960 Output: Urine 1650 1200 Estimated Blood Loss 200 Other: Voiding Method External Catheter External Catheter External Catheter # Voids 0 - Labs CBC & Chem 7: 10/15/23 12:24 10/15/23 12:24 Labs: Abnormal Lab Results - Last 24 Hours (Table) 10/15/23 Range/Units 12:24 Sodium 136 L (137-145) mmol/L Glucose 103 H (74-99) mg/dL
[2023-10-15] MEDS ORDERED: COLCHICIN-PROBENECID 0.5-500MG 1 EACH TAB PO SCH (21:00)
[2023-10-15] MEDS: SENNOSIDES-DOCUSATE SODIUM 1 EACH TAB PO SCH (21:36)
[2023-10-16] MEDS: CYCLOBENZAPRINE 5 MG TAB PO PRN (00:03)
[2023-10-16] MEDS: SODIUM CHLORIDE 0.9% 1,000 ML IV SCH ×2 (05:40→08:28)
[2023-10-16] MEDS: PANTOPRAZOLE 40 MG TABLET PO SCH (05:44)
[2023-10-16] MEDS: LEVOTHYROXINE 100 MCG TAB PO SCH (05:44)
[2023-10-16] MEDS: HYDROcodone/APAP 10-325MG 1 EACH TAB PO PRN ×2 (05:44→14:58)
[2023-10-16] MEDS ORDERED: polyethylene glycoL 3350 17 GM POWD.PACK PO STA (08:22)
[2023-10-16] MEDS: APIXABAN 2.5 MG TABLET PO SCH (08:29)
[2023-10-16] MEDS: DILTIAZEM CD 120 MG CAP.ER.24H PO SCH (08:29)
[2023-10-16] MEDS ORDERED: COLCHICIN-PROBENECID 0.5-500MG 1 EACH TAB PO SCH (09:00)
[2023-10-16 09:56] LABS: HCT 35.2 % (34.0-46.0); HGB 11.3 gm/dL (11.4-16.0); MCH 29.9 pg (25.0-35.0); MCHC 32.2 g/dL (31.0-37.0); Mean Platelet Volume 9.1; Platelet Count 190 k/uL (150-450); RBC 3.79 m/uL (3.80-5.40); RDW 15.5 % (11.5-15.5); WBC 9.8 k/uL (3.8-10.6)
--- NOTE | 2023-10-16 10:22 | P.PN ---
Subjective Progress Note Date: 10/16/23 Principal diagnosis: left hip IT fracture This is a 88 year-old female post left hip IT nail. This is post-op day 2. The patient was evaluated at the bedside. The patient denies nausea, vomiting, abdominal pain, chest pain, or shortness of breath this morning. She states her pain is controlled at this time. She states her muscle spasms are better. The patient has been up with physical therapy. We are awaiting approval for skilled rehab. Objective - Vital Signs Vital signs: Vital Signs Temp 97.9 F 10/16/23 07:47 Pulse 100 10/16/23 07:47 Resp 15 10/16/23 07:47 BP 101/65 10/16/23 07:47 Pulse Ox 95 10/16/23 07:47 FiO2 Intake & Output 10/15/23 10/16/23 10/16/23 18:59 06:59 18:59 Output Total 1450 850 Balance -1450 -850 Weight 63.503 kg Output: Urine 1450 850 Other: Voiding Method External Catheter External Catheter # Voids 1 - Exam The patient does not appear in acute distress. Alert and orientated x3. Dressing is clean dry and intact. Incision appears fine with no erythema or active drainage. Calf is soft and nontender. Good foot and ankle motion without difficulty. Sensation and circulatory status is intact. - Labs CBC & Chem 7: 10/16/23 08:35 10/15/23 12:24 Labs: Abnormal Lab Results - Last 24 Hours (Table) 10/15/23 10/16/23 Range/Units 12:24 08:35 RBC 3.79 L (3.80-5.40) m/uL Hgb 11.3 L (11.4-16.0) gm/dL Sodium 136 L (137-145) mmol/L Glucose 103 H (74-99) mg/dL Assessment and Plan (1) Status post hip surgery Current Visit: Yes Status: Acute Code(s): Z98.890 - OTHER SPECIFIED POSTPROCEDURAL STATES SNOMED Code(s): 497027575 (2) Atrial fibrillation Current Visit: Yes Status: Acute Code(s): I48.91 - UNSPECIFIED ATRIAL FIBRILLATION SNOMED Code(s): 24088519 (3) Closed left hip fracture Current Visit: Yes Status: Acute Code(s): S72.002A - FRACTURE OF UNSP PART OF NECK OF LEFT FEMUR, INIT SNOMED Code(s): 322134167 (4) Fall Current Visit: Yes Status: Acute Code(s): W19.XXXA - UNSPECIFIED FALL, INITIAL ENCOUNTER SNOMED Code(s): 0000882 Plan: 1. Continue pain control 2. Anticoagulation with Eliquis 3. Continue physical therapy and ambulation 5. Anticipate discharge to skilled rehab upon auth approval and possible peer to peer.
--- NOTE | 2023-10-16 12:05 | P.DS ---
Providers Date of admission: 10/13/23 18:18 Expected date of discharge: 10/16/23 Attending physician: Samuel Jean Consults: 10/13/23 18:10 Consult Physician Urgent Consulting Provider: Jennifer Duke Consult Reason/Comments: pre-op clearance Do you want consulting provider notified?: Already Contacted Primary care physician: Chandrakant Oakley - Discharge Diagnosis(es) (1) Status post hip surgery Current Visit: Yes Status: Acute (2) Atrial fibrillation Current Visit: Yes Status: Acute (3) Closed left hip fracture Current Visit: Yes Status: Acute (4) Fall Current Visit: Yes Status: Acute Hospital Course: This is a 88 -year-old female who presented with a fall at home and sustained a left intertrochanteric hip fracture. The patient presented to the ER and was admitted for surgical intervention. After discussion and consideration the patient elects to proceed with a left hip IT nail. The patient was seen preoperatively by internal medicine and cleared for surgery. The patient underwent a left hip IT nail on 10/14/2023. The procedure was performed without complication or sequelae. The patient is doing well postoperatively. Labs and vital signs are stable the day of discharge. On the day of discharge the patient's hip incisions are healing well. There is minimal erythema. There is no drainage noted at this time. There is minimal soft tissue swelling to the hip and thigh. The patient has full foot and ankle motion without difficulty or pain. Neurovascular status to the left lower extremity is intact. The patient will be discharged to skilled rehab today in stable condition. See medication reconciliation for accurate list of discharge medications Pertinent Studies: Laboratory Tests 10/16/23 08:35 WBC 9.8 RBC 3.79 L Hgb 11.3 L Patient Condition at Discharge: Stable Plan - Discharge Summary Discharge Rx Participant: Yes New Discharge Prescriptions: New Docusate [Colace] 100 mg PO BID #28 capsule HYDROcodone/APAP 5-325MG [[place] 5] 1 - 2 each PO Q4-6H PRN #32 tab PRN Reason: Pain No Action Apixaban [Eliquis] 2.5 mg PO BID Acetaminophen Tab [Tylenol] 650 mg PO Q4-6H PRN PRN Reason: Fever And/ Or Pain RX: guaiFENesin 400 mg PO DAILY RX: guaiFENesin 800 mg PO HS Diltiazem Cd [Cardizem CD] 120 mg PO BID Levothyroxine Sodium [Synthroid] 100 mcg PO DAILY Probenecid/Colchicine [Probenecid-Colchicine Tablet] 1 tab PO BID Omeprazole [PriLOSEC] 20 mg PO BID Discharge Medication List Acetaminophen Tab [Tylenol] 650 mg PO Q4-6H PRN 10/13/23 [History] Apixaban [Eliquis] 2.5 mg PO BID 10/13/23 [History] Diltiazem Cd [Cardizem CD] 120 mg PO BID 10/13/23 [History] Levothyroxine Sodium [Synthroid] 100 mcg PO DAILY 10/13/23 [History] Omeprazole [PriLOSEC] 20 mg PO BID 10/13/23 [History] Probenecid/Colchicine [Probenecid-Colchicine Tablet] 1 tab PO BID 10/13/23 [History] RX: guaiFENesin 400 mg PO DAILY 10/13/23 [History] RX: guaiFENesin 800 mg PO HS 10/13/23 [History] Docusate [Colace] 100 mg PO BID #28 capsule 10/14/23 [Rx] HYDROcodone/APAP 5-325MG [[place] 5] 1 - 2 each PO Q4-6H PRN #32 tab 10/16/23 [Rx] Follow up Appointment(s)/Referral(s): Chandrakant Oakley MD [Primary Care Provider] - 1-2 days Samuel Jean MD [Medical Doctor] - 2 Weeks Activity/Diet/Wound Care/Special Instructions: 1. Weight-bear as tolerated on your operative extremity unless instructed otherwise. Use a walker or other assistive device to ambulate. 2. Leave surgical dressing in place. If your dressing becomes saturated with blood, there is drainage, or the dressing becomes loose please contact the office. 3. It is okay to shower with your surgical dressing, but do not submerge in water (no hot tubs, bath's, swimming etc.) 4. Resume your home Eliquis dose of 2.5mg twice a day both for treatment of atrial fibrillation and blood clot prevention. 5. While taking [place] or Percocet for pain make sure you're taking a stool softener (Colace) and drink lots of water. 6. Keep all follow-up appointments as scheduled. You will usually be seen in 1-2 weeks following surgery. 7. Please contact the office with any questions or concerns [phone]
--- NOTE | 2023-10-16 12:28 | P.PN ---
Subjective Progress Note Date: 10/16/23 Patient is a 88-year-old female with known A-fib anticoagulated with Eliquis, GERD, and hypothyroidism who presented to the emergency department after a fall. She was subsequently found to have a left intertrochanteric hip fracture. She was admitted to orthopedic surgery we are asked to consult for medical management. Patient seen and examined at bedside. She is sleeping but awakes to touch. She denies any chest pain or shortness of breath. Pain and leg spasms are better than yesterday. Vital signs reviewed General: Nontoxic, no distress, appears at stated age Cardiovascular: S1S2 reg, no murmur Lungs: Decreased bs b/l bilateral, no rhonchi, no rales, no accessory muscle use Abdominal: Soft, nontender to palpation, no guarding Ext: No gross muscle atrophy, no edema b/l lower extremities Neuro: CN II-XI grossly intact, no focal neuro deficits Psych: Alert, oriented, appropriate affect Assessment/Plan: Left intertrochanteric hip fracture s/p Im nailing Post-op pain, improved - d/c today to SNF Atrial fibrillation with rapid ventricular response, rapid ventricular response resolved - Eliquis 2.5 PO BID - Cardizem 120 mg oral twice daily Hypothyroidism -Synthroid 100 mg daily Gout -Colchicine/probenecid BID Medically optimized for discharge. Discharge med rec addressed. Imaging: None new Data Review: Labs reviewed from today include CBC which is remarkable for hemoglobin 11.3. Thank you for allowing us to participate in the care of this pleasant patient. Do not hesitate to contact us with questions. Someone can be reached from the [facility] hospitalist group all hours of the day at [phone] or via [email or web address]. This dictation was prepared using [employer] voice recognition software. Though every attempt is made to correct errors during dictation some may still exist. Objective - Vital Signs Vital signs: Vital Signs Temp 97.9 F 10/16/23 07:47 Pulse 100 10/16/23 07:47 Resp 15 10/16/23 07:47 BP 101/65 10/16/23 07:47 Pulse Ox 95 10/16/23 07:47 FiO2 Intake & Output 10/15/23 10/16/23 10/16/23 18:59 06:59 18:59 Output Total 1450 850 Balance -1450 -850 Weight 63.503 kg Output: Urine 1450 850 Other: Voiding Method External Catheter External Catheter External Catheter # Voids 1 - Labs CBC & Chem 7: 10/16/23 08:35 10/15/23 12:24 Labs: Abnormal Lab Results - Last 24 Hours (Table) 10/15/23 10/16/23 Range/Units 12:24 08:35 RBC 3.79 L (3.80-5.40) m/uL Hgb 11.3 L (11.4-16.0) gm/dL Sodium 136 L (137-145) mmol/L Glucose 103 H (74-99) mg/dL
[2023-10-16 14:33] VITALS: BP 102/66; PULSE 91; RESP 17; TEMP 98.6
== END 2023-10-16 15:02 | DRG 481 ==
LOC: EC 15:29 → 4SSUR 18:18
PROVIDERS: ADMIT Orthopaedic Surgery; ATTEND Orthopaedic Surgery
PROC: 0QS736Z Reposition Left Upper Femur with Intramedullary Internal Fixation Device, Percutaneous Approach (ICD-10-PCS; principal; 2023-10-14 11:00)
DX: S72.142A Displaced intertrochanteric fracture of left femur, initial encounter for closed fracture (principal); I48.20 Chronic atrial fibrillation, unspecified; W18.30XA Fall on same level, unspecified, initial encounter; E03.9 Hypothyroidism, unspecified; M10.9 Gout, unspecified; G89.29 Other chronic pain; M25.562 Pain in left knee; M62.838 Other muscle spasm; H91.90 Unspecified hearing loss, unspecified ear; Z97.4 Presence of external hearing-aid; K21.9 Gastro-esophageal reflux disease without esophagitis; Z71.3 Dietary counseling and surveillance; Z28.310 Unvaccinated for COVID-19; Z28.21 Immunization not carried out because of patient refusal; E66.3 Overweight; Z68.28 Body mass index [BMI] 28.0-28.9, adult; Z79.01 Long term (current) use of anticoagulants; Z87.891 Personal history of nicotine dependence; Z79.82 Long term (current) use of aspirin
CPT/HCPCS: 36415; 71045; 73501; 80048; 80053; 85025; 85027; 85610; 85730; 93005; 96374; 99285